=== PATIENT | male | born 1985 | race Hispanic/Latino ===

== ENCOUNTER 2017-04-11 10:48 | Emergency (ER) | payer SELFPAY ==
[~2017-04-11] VITALS: Ht 152.4 cm; Wt 70.0 kg
[2017-04-11] MEDS ORDERED: (None)3.5 GM OS (12:09)
[2017-04-11] MEDS ORDERED: GENTAMICIN15 ML/BTL OS (12:09)
[2017-04-11 12:25] VITALS: BP 109/76
== END 2017-04-11 12:25 | disposition home or self-care (01) | DRG 125 ==
LOC: ED 10:48
DX: H10.9 Unspecified conjunctivitis (principal)

== ENCOUNTER 2024-07-17 09:11 | Emergency (ER) | payer SELFPAY ==
[~2024-07-17] VITALS: Ht 152.4 cm; Wt 74.8 kg
[~2024-07-17 09:11] MED LIST: (None)3.5 GM OS; GENTAMICIN15 ML/BTL OS
[2024-07-17 09:17] VITALS: BP 130/84
[2024-07-17 09:30] VITALS: BP 120/87
[2024-07-17 09:45] VITALS: BP 126/85
[2024-07-17 10:00] VITALS: BP 126/82
[2024-07-17 10:15] VITALS: BP 116/81
[2024-07-17] MEDS ORDERED: PAXLOVID PO (10:15)
[2024-07-17 10:30] VITALS: BP 118/78; BP 119/80
== END 2024-07-17 10:53 | disposition home or self-care (01) | DRG 179 ==
LOC: ED 09:11
DX: U07.1 COVID-19 (principal); R05.9 Cough, unspecified; R52 Pain, unspecified; R50.9 Fever, unspecified